=== PATIENT | female | born 1970 | race Caucasian/White ===

== ENCOUNTER 2019-05-22 09:10 | Inpatient (IN) | payer MEDICAID, OTHER ==
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
[2019-05-22 10:53] LABS: Amphetamine Screen,Urine Not Detected (NotDetected); Barbiturate Screen,Urine Not Detected (NotDetected); Benzodiazepines Screen,Urine Not Detected (NotDetected); Cocaine Screen,Urine Not Detected (NotDetected); Methadone Screen, Urine Not Detected (NotDetected); Opiate Screen,Urine Not Detected (NotDetected); Oxycodone Screen, Urine Not Detected (NotDetected); Phencyclidine Screen,Urine Not Detected (NotDetected); Tricyclic Antidepressant,Urine Not Detected (NotDetected); Urn Cannabinoid Scrn Not Detected (NotDetected)
[2019-05-22] MEDS ORDERED: MAG HYDROX/AL HYDROX/SIMETH 30 ML CUP PO PRN (12:42)
[2019-05-22] MEDS ORDERED: MAGNESIUM HYDROXIDE 2,400 MG/10 ML CUP PO PRN (12:42)
[2019-05-22] MEDS ORDERED: ZIPRASIDONE 20 MG VIAL IM PRN (12:42)
[2019-05-22] MEDS: NICOTINE 14MG/24HR PATCH TRANSDERM SCH (13:52)
[2019-05-22] MEDS ORDERED: PNEUMOCOCCAL VACC-PNEUMOVAX 23 25 MCG/0.5 ML VIAL IM ONE (15:02)
[2019-05-22] MEDS ORDERED: INFLUENZA VACCINE (6 MOS+) 60 MCG/0.5 ML SYRINGE IM ONE (15:02)
--- NOTE | 2019-05-22 16:02 | P.HPIM ---
History of Present Illness H&P Date: 05/22/19 Chief Complaint: Hallucinations 49-year-old female presents emergency room with her daughter with concerns for auditory hallucinations worsening for the past 2 months. Patient reports that she has conversations with people and that she knows that they're not talking directly to her. Patient reports that these voices keep her up at night. Those voices do not tell her any harmful thoughts or suicidal intent. She has been having severe insomnia due to them. According to her only medical condition is anemia which was only diagnosed a few weeks ago when she started seeing a physician. She denied any other medical history including hypertension and diabetes. Review of Systems Complete review of system performed, pertinent positives per HPI, otherwise negative Past Medical History Past Medical History: No Reported History History of Any Multi-Drug Resistant Organisms: None Reported Past Surgical History: Bariatric Surgery, Section, Cholecystectomy Past Anesthesia/Blood Transfusion Reactions: No Reported Reaction Past Psychological History: Anxiety, Depression Smoking Status: Current every day smoker Past Alcohol Use History: None Reported Past Drug Use History: None Reported Medications and Allergies Home Medications Medication Instructions Recorded Confirmed Type Cyanocobalamin [Vitamin B-12 1,000 mcg SQ QMONTH 05/22/19 05/22/19 History Injection] Ferrous Sulfate [Feosol] 325 mg PO DAILY@1800 05/22/19 05/22/19 History Folic Acid 1 mg PO DAILY@1800 05/22/19 05/22/19 History Allergies Allergy/AdvReac Type Severity Reaction Status Date / Time Penicillins Allergy Rash/Hives Verified 05/22/19 14:34 Physical Exam Vitals: Vital Signs Temp Pulse Pulse Resp BP BP Pulse Ox 05/22/19 14:10 97.0 F L 87 20 122/74 05/22/19 12:42 97 F L 89 18 132/77 100 05/22/19 09:12 97.9 F 81 19 126/87 100 Intake and Output 05/22/19 05/22/19 05/22/19 06:59 14:59 22:59 Other: Weight 86.954 kg Constitutional: No acute distress, conversant, pleasant Eyes:Anicteric sclerae, moist conjunctiva, no lid-lag, PERRLA, ENMT: Oropharynx clear, no erythema, exudates Neck: Supple, FROM, no masses, or JVD, No carotid bruits, No thyromegaly Lungs: Clear to auscultation, Clear to percussion, Normal respiratory effort, no accessory muscle use Cardiovascular: Heart regular in rate and rhythm, No murmurs, gallops, or rubs, No peripheral edema Abdominal: Soft, Nontender, no guarding, rebound or rigidity, Normoactive bowel sounds, No hepatomegaly, No splenomegaly, No palpable mass Skin: Normal temperature, tone, texture, turgor, no induration, No subcutaneous nodules, No rash, lesions, No ulcers Extremities: No digital cyanosis, No clubbing, Pedal pulses intact and symmetrical, Radial pulses intact and symmetrical, No calf tenderness Psychiatric: Alert and oriented to person, place and time, appropriate affect, intact judgement Neuro: Muscles Strength 5/5 in all 4 extremities, Sensation to light touch grossly present throughout, Cranial nerves II-XII grossly intact, no focal sensory deficits Assessment and Plan Plan: Auditory hallucinations Management per psychiatry Health maintenance Check CBC, CMP, TSH, A1c, lipid profile Chronic anemia Unspecified type, according to patient she was not told she had to follow-up with a colonoscopy or EGD and whether this anemia is secondary to blood loss or not. She denied having any vaginal bleeding or blood in the stools. Awaiting blood work above Continue iron, B12 and folic acid
[2019-05-22] MEDS: FOLIC ACID 1 MG TAB PO SCH (17:55)
[2019-05-22] MEDS: FERROUS SULFATE 325 MG TAB PO SCH (17:55)
[2019-05-22] MEDS: ACETAMINOPHEN TAB 325 MG TAB PO PRN (22:07)
[2019-05-23] MEDS: NICOTINE 14MG/24HR PATCH TRANSDERM SCH (08:17)
[2019-05-23 11:22] LABS: Anisocytosis Moderate; Basophils # (A) 0.1 k/uL (0-0.2); Basophils % (A) 1 %; Eosinophils # (A) 0.1 k/uL (0-0.7); Eosinophils % (A) 1 %; HCT 42.2 % (34.0-46.0); HGB 11.8 gm/dL (11.4-16.0); Hypochromasia Marked; Lymphocytes # (A) 1.2 k/uL (1.0-4.8); Lymphocytes % (A) 13 %; MCH 21.5 pg (25.0-35.0); Microcytosis Moderate; Monocytes # (A) 0.5 k/uL (0-1.0); Monocytes % (A) 6 %; Neutrophils # (A) 7.1 k/uL (1.3-7.7); Neutrophils % (A) 78 %; Platelet Count 289 k/uL (150-450); RBC 5.48 m/uL (3.80-5.40); RDW 23.9 % (11.5-15.5); WBC 9.1 k/uL (3.8-10.6)
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
[2019-05-23] MEDS: PALIPERIDONE 3 MG TAB.ER.24 PO SCH (12:20)
[2019-05-23 12:23] LABS: ALT 12 U/L (4-34); AST 19 U/L (14-36); African American GFR (CKD) >90 (>60 ml/min/1.73 sqM); Albumin 4.3 g/dL (3.5-5.0); Alkaline Phosphatase 77 U/L (38-126); Anion Gap 6 mmol/L; Blood Urea Nitrogen 14 mg/dL (7-17); Calcium 9.9 mg/dL (8.4-10.2); Carbon Dioxide 27 mmol/L (22-30); Chloride 105 mmol/L (98-107); Glucose 89 mg/dL (74-99); Non-African American GFR(CKD) >90 (>60 ml/min/1.73 sqM); Potassium 4.4 mmol/L (3.5-5.1); Sodium 138 mmol/L (137-145); Total Bilirubin 0.6 mg/dL (0.2-1.3); Total Protein 7.7 g/dL (6.3-8.2)
[2019-05-23 12:51] LABS: Cholesterol 121 mg/dL (<200); HDL Cholesterol 47 mg/dL (40-60); LDL Cholesterol,Calculated 61 mg/dL (0-99); Triglycerides 65 mg/dL (<150)
[2019-05-23] MEDS: FOLIC ACID 1 MG TAB PO SCH (17:15)
[2019-05-23] MEDS: FERROUS SULFATE 325 MG TAB PO SCH (17:15)
[2019-05-23 20:07] LABS: Hemoglobin A1C 4.4 % (4.0-6.0)
[2019-05-24] MEDS ORDERED: BENZTROPINE MESYLATE 0.5 MG TAB PO PRN (09:12)
--- NOTE | 2019-05-24 09:16 | P.PN ---
Progress Note - Text Interval history: The patient is found in her room she follows me to an interview room. She indicates that she feels safe her mood is okay. She states that the conversations have decreased. She did comply with the invega yesterday. She has no questions or concerns regarding the medication. We discussed titrating further to 6 mg and moved to bedtime and she is agreeable. She reports attending 2 groups yesterday. She is eating. Staff reported she slept 6 hours last evening. She indicates she feels better that she slept. She did have phone conversations with several family members and those were supportive. Mental status exam: The patient is alert she is a disheveled appearance, hygiene fair, eye contact is intermittent. Affect is blunted. She presents with report of auditory hallucinations in the form of ongoing conversations. She states that they're better today compared to yesterday possibly due to improved sleep and just being around other people more. She reports feeling safe in the hospital. The auditory hallucinations can be overwhelming at times and she referred to them as torturing her. She is reporting no thoughts of harming others. She continues to have thoughts that people are asking questions about her from the government. She demonstrates no verbal or physical aggressiveness she demonstrates no involuntary repetitive movements. Insight and judgment limited. Plan: We will continue the invega and titrate the dose to 6 mg at bedtime. Rhett is written in case she has any extraparametal symptoms. We will monitor her for safety and encourage participation in the milieu. Vital signs reviewed. She requires continued psychiatric hospitalization for symptoms of psychosis.
[2019-05-24] MEDS: NICOTINE 14MG/24HR PATCH TRANSDERM SCH (09:23)
[2019-05-24] MEDS: PALIPERIDONE 3 MG TAB.ER.24 PO SCH (09:42)
[2019-05-24] MEDS: FOLIC ACID 1 MG TAB PO SCH (18:04)
[2019-05-24] MEDS: FERROUS SULFATE 325 MG TAB PO SCH (18:04)
[2019-05-24] MEDS: PALIPERIDONE 6 MG TAB.ER.24 PO SCH (20:52)
[2019-05-24] MEDS: ACETAMINOPHEN TAB 325 MG TAB PO PRN (20:55)
[2019-05-25] MEDS: LORazepam 0.5 MG TAB PO PRN ×2 (03:26→21:46)
[2019-05-25] MEDS: NICOTINE 14MG/24HR PATCH TRANSDERM SCH (09:17)
--- NOTE | 2019-05-25 12:31 | P.PN ---
Progress Note - Text Progress Note Date: 05/25/19 Interval history: Patient was seen wandering the hallways and was directable and agreeable to s peak with blog writer. Patient appears to have mildly improved hygiene and grooming and was directable during conversation and more appropriate. She states that she is "ready to go home" and he was demanding discharge today. She states that the medication is helping her think "clearly" and states that she does not hear voices any longer. She states that she slept much better last night as the Invega was increased. Patient claims that she has been going to groups her with superficial about it. She states that her mood has been improving gradually. At this time patient denies any suicidal or homicidal ideations intent or plan. Denies any Auditory or visual hallucinations. Patient denies any side effects from the medications and has been compliant with meds. Mental status exam: General Appearance: Patient appears to be older than stated age is alert, directable, and superficially cooperative. Wearing street clothing. Behavior: No agitated behavior. Patient is calm and directable proficiently cooperative. Speech: Patient's speech is fluent and nonpressured. Mood/Affect: Mood is improving mildly, affect is congruent and constricted. Suicidality/Homicidality: Patient denies having any suicidal or homicidal ideation intent or plan. Perceptions: Patient denies any auditory or visual hallucinations. Though content/process: Focused on discharge, goal oriented. Poverty of con tent/guarded. Memory and concentration: AOX3, grossly intact for the purposes of this session Judgment and insight: improving mildly Assessment/Plan: Continue with current diagnosis. Patient continues to meet criteria for inpatient psychiatric admission for symptom stabilization and safety.Patient will be maintained on current psychotropic medication regimen. Monitor for medication compliance and for any psychotropic medication side effects. Will continue to monitor ongoing response to treatment. Encouraged participation in milieu.
[2019-05-25] MEDS: FERROUS SULFATE 325 MG TAB PO SCH (17:21)
[2019-05-25] MEDS: FOLIC ACID 1 MG TAB PO SCH (17:21)
[2019-05-25] MEDS: PALIPERIDONE 6 MG TAB.ER.24 PO SCH (20:14)
[2019-05-26] MEDS: NICOTINE 14MG/24HR PATCH TRANSDERM SCH (10:10)
[2019-05-26] MEDS ORDERED: CYANOCOBALAMIN 1,000 MCG/ML 1 ML VIAL SQ SCH (12:00)
--- NOTE | 2019-05-26 13:53 | P.PN ---
Progress Note - Text Progress Note Date: 05/26/19 Interval history: Patient was seen wandering the hallways and was directable and agreeable to s peak with hand sign writer. Patient appears to have mildly improved hygiene and grooming and was directable during conversation and more appropriate. Patient continues to feel that she is ready for discharge and continues to be preoccupied with being released from the hospital. She states that "it's a beautiful day and only spend time with my kids". She states that she has been doing much better on her medications and states that she slept throughout the night. She denied any overnight complaints. She also claims that she has not heard voices for 2-3 days now. Patient is mildly improve insight. Patient claims that she has been going to groups. She states that her mood has been improving gradually. At this time patient denies any suicidal or homicidal ideations intent or plan. Denies any Auditory or visual hallucinations. Patient denies any side effects from the medications and has been compliant with meds. Mental status exam: General Appearance: Patient appears to be older than stated age is alert, directable, and attempts to cooperative. Wearing street clothing. Mildly improving hygiene and grooming. Behavior: No agitated behavior. Patient is calm and directable, cooperative. Demanding at times. Speech: Patient's speech is fluent and nonpressured. Mood/Affect: Mood is improving mildly, affect is congruent and constricted. Suicidality/Homicidality: Patient denies having any suicidal or homicidal ideation intent or plan. Perceptions: Patient denies any auditory or visual hallucinations. Though content/process: Focused on discharge, goal oriented. Poverty of cont ent. Demanding discharge. Memory and concentration: AOX3, grossly intact for the purposes of this session Judgment and insight: improving mildly Assessment/Plan: Continue with current diagnosis. Patient continues to meet criteria for inpatient psychiatric admission for symptom stabilization and safety.Patient will be maintained on current psychotropic medication regimen. Monitor for medication compliance and for any psychotropic medication side effects. Will continue to monitor ongoing response to treatment. Encouraged participation in milieu.
[2019-05-26] MEDS: FOLIC ACID 1 MG TAB PO SCH (17:50)
[2019-05-26] MEDS: FERROUS SULFATE 325 MG TAB PO SCH (17:50)
[2019-05-26] MEDS: PALIPERIDONE 6 MG TAB.ER.24 PO SCH (20:47)
[2019-05-26] MEDS: LORazepam 0.5 MG TAB PO PRN (20:48)
[2019-05-27 07:05] VITALS: BP 111/66; PULSE 80; RESP 18; TEMP 97.5
[2019-05-27] MEDS: NICOTINE 14MG/24HR PATCH TRANSDERM SCH (09:22)
--- NOTE | 2019-05-27 11:39 | P.DS ---
Providers Date of admission: 05/22/19 12:17 Expected date of discharge: 05/27/19 Attending physician: Adryan Carlisle Consults: 05/22/19 12:42 Consult Physician Routine Consulting Provider: Norma Middleton Consult Reason/Comments: H & P and medical care Do you want consulting provider notified?: Yes Primary care physician: Stated None - Discharge Diagnosis(es) (1) Psychosis Current Visit: Yes Status: Acute Priority: High Hospital Course: Brief summary of admission note: This patient is a 49-year-old single female who was admitted to the mental health unit through the emergency room for acute symptoms of psychosis. The patient presented reporting auditory hallucinations that were becoming overwhelming. She described having conversations that were present almost all day long. She had been experiencing voices like this since the age of 9. She states in February they became much worse and recently intolerable. At first she described the voices as being good but as the session progressed she indicated that one of the voices "tortures me all the time". She reported that voice was making derogatory comments and was threatening. She also described thoughts that people were following her and asking about her that were likely from the government. For full details please refer to my psychiatric evaluation dated 05/23/2019. Summary of hospital course: The patient was admitted to the mental health unit voluntarily. We reviewed her presenting symptoms and treatment options. We decided to initiate invega for her symptoms of psychosis. We initially started this at 3 mg and it was later titrated to 6 mg at bedtime. She was seen by internal medicine for routine history and physical exam. Social work completed a psychosocial assessment and began discharge planning. The patient has been attending group she demonstrated no agitated behavior. She indicates that her symptoms are significantly improved. She states that she will hear a thought in her head that is positive doesn't think it's a voice. She is experiencing no d erogatory comments no command auditory hallucinations. She demonstrates future oriented thinking. We spent some time discussing her use of substances and the need for her to completely abstain. Mental status exam: The patient is a female appearing older than her stated age. She is dressed in her own clothing hygiene grooming adequate. Eye contact is appropriate. Speech is fluent spontaneous nonpressured. She reports her mood is much improved she denies having any suicidal or homicidal ideation intent or plan she reports no auditory or visual hallucinations. She states that she does hears her own voice saying positive things. She denies having any command auditory hallucinations. She is reporting no specific delusions at this time. She demonstrates no objective evidence of psychosis during our session. Thought process is linear she demonstrates no tangential thinking loose associations or flight of ideas. She does not appear hypomanic or manic. She demonstrates no verbal or physical aggressiveness she demonstrates no involuntary repetitive movements. She remains oriented to person place and date. Affect is demonstrating full range. Impressions 1. Psychosis unspecified, rule out schizophrenia, rule out methamphetamine use disorder Plan: The patient will be discharged mental health unit today she will return home with her family. She will continue on invega 6 mg at bedtime. Social work will arrange for outpatient follow-up. She is instructed to abstain from any use of alcohol or marijuana or illicit drugs. She does not wish to attend inpatient chemical dependency treatment as she states she has been sober for 4 months. She does not wish to have any medication prescribed to reduce cravings for substance use. At this time there is no imminent safety risk she is no longer appears psychotic, she is able to attend her activities of daily living, she demonstrates future oriented thinking. She is instructed return to the hospital with any acute safety concerns. Patient Condition at Discharge: Stable Plan - Discharge Summary New Discharge Prescriptions: New Nicotine 14Mg/24Hr Patch [Habitrol] 1 patch TRANSDERM DAILY #14 patch Paliperidone [Invega] 6 mg PO HS #30 tab.er.24 Continue Folic Acid 1 mg PO DAILY@1800 Ferrous Sulfate [Iron (65 MG Elemental)] 325 mg PO DAILY@1800 Cyanocobalamin [Vitamin B-12 Injection] 1,000 mcg SQ QMONTH Discharge Medication List Cyanocobalamin [Vitamin B-12 Injection] 1,000 mcg SQ QMONTH 05/22/19 [History] Ferrous Sulfate [Iron (65 MG Elemental)] 325 mg PO DAILY@1800 05/22/19 [History] Folic Acid 1 mg PO DAILY@1800 05/22/19 [History] Nicotine 14Mg/24Hr Patch [Habitrol] 1 patch TRANSDERM DAILY #14 patch 05/27/19 [Rx] Paliperidone [Invega] 6 mg PO HS #30 tab.er.24 05/27/19 [Rx] Follow up Appointment(s)/Referral(s): [facility] [[facility]] - 05/28/19 11:00 am (05-28-19 @ 11:00 with Nidhi Lozano 06-03-19 @ 3:[address] Giang (emergency med review)) None,Stated [Primary Care Provider] - 1-2 days Activity/Diet/Wound Care/Special Instructions: Activity and diet as tolerated. Avoid the use of street drugs and alcohol. Take all medications as prescribed. When you are in need of refills on your medications please contact your medical provider and/or outpatient psychiatrist to have this done. Please go to scheduled outpatient appointment for aftercare treatment. If symptoms return or become worse, call the crisis line at and/or go to the nearest emergency room for evaluation.
== END 2019-05-27 13:08 | disposition home or self-care (01) | DRG 885 ==
LOC: EC 09:10 → 3MHU 12:17
PROVIDERS: ADMIT Psychiatry & Neurology Psychiatry; ATTEND Psychiatry & Neurology Psychiatry
DX: F29 Unspecified psychosis not due to a substance or known physiological condition (principal); D64.9 Anemia, unspecified; F17.200 Nicotine dependence, unspecified, uncomplicated; Z88.0 Allergy status to penicillin; Z81.8 Family history of other mental and behavioral disorders; Z81.1 Family history of alcohol abuse and dependence; F20.9 Schizophrenia, unspecified; F15.19 Other stimulant abuse with unspecified stimulant-induced disorder
CPT/HCPCS: 80053; 80061; 80306; 82075; 83036; 84443; 85025; 90686; 90732; 99285

== ENCOUNTER → 2020-08-28 | Outpatient (CLI) | payer OTHER ==
[2020-08-28 11:16] LABS: Prothrombin Time 14.6 sec (9.0-12.0)
[2020-08-28 11:28] LABS: INR 1.4 (<1.2)
== END | disposition home or self-care (01) ==
LOC: LABWHC1 10:36
PROVIDERS: ATTEND Internal Medicine
DX: I35.0 Nonrheumatic aortic (valve) stenosis (principal); Z95.2 Presence of prosthetic heart valve
CPT/HCPCS: 36415; 85610

== ENCOUNTER → 2020-09-03 | Outpatient (CLI) | payer OTHER ==
[2020-09-04 00:16] LABS: INR 1.38 (0.90-1.11); Prothrombin Time 14.7 sec (9.9-11.9)
== END | disposition home or self-care (01) ==
LOC: LABWHC1 15:07
PROVIDERS: ATTEND Internal Medicine
DX: I35.0 Nonrheumatic aortic (valve) stenosis (principal); Z95.2 Presence of prosthetic heart valve
CPT/HCPCS: 36415; 85610

== ENCOUNTER → 2020-09-09 | Outpatient (CLI) | payer OTHER ==
[2020-09-09 23:18] LABS: INR 3.35 (0.90-1.11); Prothrombin Time 33.7 sec (9.9-11.9)
== END | disposition home or self-care (01) ==
LOC: LABWHC1 16:13
PROVIDERS: ATTEND Internal Medicine
DX: I35.0 Nonrheumatic aortic (valve) stenosis (principal); Z95.2 Presence of prosthetic heart valve
CPT/HCPCS: 36415; 85610

== ENCOUNTER → 2023-06-27 | Outpatient (CLI) | payer OTHER ==
--- NOTE | 2023-06-27 22:18 | US ---
EXAMINATION TYPE: US abdomen complete DATE OF EXAM: 06/27/2023 COMPARISON: NONE CLINICAL INDICATION: Female, 53 years old with history of R76.8ABNORMAL IMMUNOLOGICAL FINDINGS; Denise ent hx of cholecystectomy and gastric surgery. Patient has slight RUQ tenderness with probe pressure. Positive hep C antibody test TECHNIQUE: Multiple sonographic images of the abdomen are obtained. FINDINGS: EXAM MEASUREMENTS: Liver Length: 18.0 cm Gallbladder Wall: Surgically absent cm CBD: 0.8 cm Spleen: 9.2 cm Right Kidney: 11.2 x 4.2 x 4.9 cm Left Kidney: 10.5 x 6.1 x 5.0 cm SOLUTION COORDINATOR NOTES: Limited exam due to overlying bowel gas and patient body habitus Pancreas: Obscured by bowel gas Liver: Portions obscured by gas. Liver difficult to penetrate. Visualized portions appear WNL today. Upper limits of normal in size Gallbladder: Surgically absent Evidence for sonographic Fan's sign: No CBD: wnl post cholecystectomy Spleen: wnl as best seen Right Kidney: No hydronephrosis or masses seen as best visualized today Left Kidney: No hydronephrosis or masses seen as best visualized today Upper IVC: wnl Abd Aorta: Unable to visualize due to overlying bowel gas IMPRESSION: 1 hepatomegaly with mild fatty infiltration.
== END | disposition home or self-care (01) ==
LOC: RADUSWWP 07:13
PROVIDERS: ATTEND Family Medicine
DX: R76.8 Other specified abnormal immunological findings in serum (principal); R16.0 Hepatomegaly, not elsewhere classified; K76.89 Other specified diseases of liver; K76.0 Fatty (change of) liver, not elsewhere classified
CPT/HCPCS: 76700

== ENCOUNTER → 2023-07-03 | Outpatient (CLI) | payer OTHER ==
--- NOTE | 2023-07-03 07:59 | CTL ---
EXAMINATION TYPE: CT Low Dose Lung DATE OF EXAM ORDERED: 07/03/2023 COMPARISON: None HISTORY: . Low Dose CT Lung Screening CT DLP: 127.[address] CTDI: 4.0 mGy IV CONTRAST USED: None. SCREENING VISIT: First visit TECHNIQUE: Low dose computed tomography scan was performed through the chest at 1 millimeter thick se ctions and reconstructed images in the coronal plane at [address] DIAGNOSTIC QUALITY: Satisfactory FINDINGS: LUNG NODULES: 5 mm subpleural right middle lobe nodule image 185. 6 mm subpleural pulmonary nodule le ft lower lobe image 172. Scattered pleural-parenchymal scarring. LUNGS: COPD: Severity: Mild Fibrosis: Severity:None Lymph nodes: None Other findings: None RIGHT PLEURAL SPACE: Effusion: None Calcification: None Thickening: None Pneumothorax: None LEFT PLEURAL SPACE: Effusion: None Calcification: None Thickening: None Pneumothorax: None HEART: Heart Size: Mildly enlarged Coronary calcification: Mild Pericardial effusion: None OTHER FINDINGS: Upper abdomen: No significant abnormality Bony thorax: Degenerative changes Supraclavicular region: No significant abnormalityOther: No significant abnormalityI IMPRESSION: Subpleural nodularity as discussed above. FOLLOW UP CT CHEST RECOMMENDATION: Follow-up screening in one year CT LUNG RAD: LUNG RAD CATEGORY 2 benign appearance and/or behavior.
== END | disposition home or self-care (01) ==
LOC: RADCTMAIN 06:51
PROVIDERS: ATTEND Family Medicine
DX: Z12.2 Encounter for screening for malignant neoplasm of respiratory organs (principal); F17.210 Nicotine dependence, cigarettes, uncomplicated
CPT/HCPCS: 71271